=== PATIENT | male | born 1995 | race Caucasian/White ===

== ENCOUNTER → 2019-06-15 | Outpatient (CLI) | payer OTHER ==
[~2019-06-15] MED LIST: AMPH20TA2 PO; BENZ100C18 PO; ESCI20TA2 PO; HYDR-1231 PO; IBUP-15 PO; ONDA-42 SL; TAMIFLU 75 MG PO
--- NOTE | 2019-06-15 14:30 | Diagnostic Imaging Report ---
INDICATION: Back pain. COMPARISON: None. FINDINGS: Frontal and lateral views of the lumbar spine were obtained. Alignment and vertebral heights are maintained. There is no fracture or destructive process. No significant degenerative disease is noted in the lumbar spine. Limited views of the abdomen demonstrate nonobstructive bowel gas pattern. IMPRESSION: 1. No acute fracture or dislocation of the lumbar spine. Dictated by: Dictated on workstation # [id number]
== END ==
LOC: RAD 14:14
PROVIDERS: ATTEND Nurse Practitioner Family
DX: M54.5 Low back pain (principal)
CPT/HCPCS: 72100

== ENCOUNTER → 2019-07-08 | Outpatient (CLI) | payer SELFPAY ==
--- NOTE | 2019-07-08 10:48 | Diagnostic Imaging Report ---
PROCEDURE: US Scrotum. TECHNIQUE: Multiple real-time grayscale images were obtained over the scrotum in various projections bilaterally. INDICATION: Right testicular enlargement There are no prior studies available for comparison. Both testicles were identified. The right testicle measures 5.1 x 2.5 x 3.4 cm while the left testicle is estimated to be about 5.0 x 2.6 x 3.5 cm. There is no evidence for a solid testicular mass or for a torsion of either testicle. There is no sign of epididymitis. There was a small amount of fluid about the right testicle. There is no evidence for hydrocele formation on the left. There is no sign of a varicocele. IMPRESSION: 1. There is no evidence for a testicular mass and there is no sign of an acute abnormality. 2. There is a small hydrocele on the right. Dictated by: Dictated on workstation # [id number]
== END ==
LOC: RAD 09:13
PROVIDERS: ATTEND Nurse Practitioner Family
DX: N44.8 Other noninflammatory disorders of the testis (principal); M54.9 Dorsalgia, unspecified; M25.551 Pain in right hip; N43.3 Hydrocele, unspecified
CPT/HCPCS: 76870